=== PATIENT | male | born 1995 | race Hispanic/Latino ===

== ENCOUNTER 2021-07-10 21:09 | Emergency (ER) | payer SELFPAY ==
[2021-07-10] MEDS ORDERED: TETANUS & DIPHTHERIA TOX,ADULT 0.5 ML VIAL ONE (22:36)
--- NOTE | 2021-07-10 23:54 | EDPHYS ---
Physician Documentation [facility] Name: Kevin Colbert Age: 25 yrs Sex: Male : 1995 Arrival Date: 07/10/2021 Time: 21:12 Bed 17 Private MD: ED Physician Micheal Marie HPI: 07/10 22:26 This 25 yrs old Male presents to ER via Ambulatory with complaints of Hand pm1 Injury, Laceration To Hand. 22:26 The patient or guardian reports a laceration, clean. The complaints affect the dorsal pm1 aspect of middle phalanx of right ring finger and dorsal aspect of middle phalanx of right index finger. Context: The problem was sustained at home, resulted from cleaning up broken glass in the sink. Onset: The symptoms/episode began/occurred just prior to arrival. Modifying factors: The symptoms are alleviated by pressure to area, the symptoms are aggravated by nothing. Associated signs and symptoms: Pertinent negatives: cyanosis distally, decreased sensation distally, numbness distally, tingling distally. Severity of symptoms: in the emergency department the symptoms have improved. The patient has not experienced similar symptoms in the past. The patient has not recently seen a physician. Historical: - Allergies: 21:19 No Known Allergies; ab2 - Home Meds: 21:19 None [Active]; ab2 - PMHx: 21:19 None; ab2 - PSHx: 21:19 None; ab2 - Immunization history:: Adult Immunizations up to date, Last tetanus immunization: > 10 years ago. - Social history:: Smoking status: Patient reports the use of cigarette tobacco products, denies chronic smoking, but will smoke occasionally. ROS: 22:26 Constitutional: Negative for fever, chills, and weight loss, Cardiovascular: Negative pm1 for chest pain, palpitations, and edema, Respiratory: Negative for shortness of breath, cough, wheezing, and pleuritic chest pain. 22:26 Neuro: Negative for headache, weakness, numbness, tingling, and seizure. 22:26 MS/extremity: Positive for injury or acute deformity, laceration, of the dorsal aspect of middle phalanx of right ring finger and dorsal aspect of middle phalanx of right index finger, Negative for decreased range of motion, deformity. 22:26 Skin: Positive for laceration(s), of the dorsal aspect of middle phalanx of right index finger and dorsal aspect of middle phalanx of right ring finger. 22:26 All other systems are negative. Exam: 22:26 Constitutional: This is a well developed, well nourished patient who is awake, alert, pm1 and in no acute distress. Head/Face: Normocephalic, atraumatic. 22:26 Cardiovascular: Exam negative for acute changes, Rate: normal, Rhythm: regular, Pulses: no pulse deficits are appreciated. 22:26 Respiratory: Exam negative for acute changes, respiratory distress, shortness of breath. 22:26 Musculoskeletal/extremity: Extremities: grossly normal except: noted in the dorsal aspect of middle phalanx of right ring finger and dorsal aspect of middle phalanx of right index finger: laceration, There is no evidence of decreased ROM, deformity. 22:26 Skin: Appearance: normal except for affected area, injury, laceration(s). 22:26 Neuro: Exam negative for acute changes, Orientation: is normal, Mentation: is normal, Motor: is normal, moves all fours. Vital Signs: 21:17 BP 140 / 72; Pulse 71; Resp 74; Temp 98.9(TE); Pulse Ox 100% on R/A; Weight 99.79 kg; ab2 Height 6 ft. 0 in. (182.88 cm); Pain 0/10; 07/11 00:13 BP 125 / 67; Pulse 82; Resp 16; Pulse Ox 100% on R/A; kd3 07/10 21:17 Body Mass Index 29.84 (99.79 kg, 182.88 cm) ab2 Laceration: 07/10 23:49 Wound Repair of 1.5cm ( 0.6in ) subcutaneous laceration to dorsal aspect of PIP of pm1 right ring finger. Irregularly shaped.. Distal neuro/vascular/tendon intact. Anesthesia: Local anesthetic administered with 1 mls of 1% lidocaine. Wound prep: Extensive cleansing with betadine with hibiclenz by me, Wound irrigation with saline by md, Wound explored extensively, Copious irrigation. Skin closed with 3 4-0 Prolene using simple sutures and sterile technique. Dressed with Neosporin, 4x4's, finger splint. Patient tolerated well. MDM: 22:24 Patient medically screened. pm1 23:49 Data reviewed: vital signs. Counseling: I had a detailed discussion with the patient pm1 and/or guardian regarding: the historical points, exam findings, and any diagnostic results supporting the discharge/admit diagnosis, radiology results, the need for outpatient follow up, suture removal in 10-14 days, to return to the emergency department if symptoms worsen or persist or if there are any questions or concerns that arise at home. 07/10 22:24 Order name: Hand Right 3 View XRAY pm1 07/10 22:25 Order name: Dressing - Wound; Complete Time: 00:12 pm1 07/10 22:25 Order name: Gloves, Sterile; Complete Time: 22:29 pm1 07/10 22:25 Order name: Prolene, Sutures; Complete Time: 00:12 pm1 07/10 22:25 Order name: Setup Suture Tray; Complete Time: 22:29 pm1 07/10 23:52 Order name: Finger Splint; Complete Time: 00:12 pm1 Administered Medications: 22:37 Drug: Tetanus-Diphtheria Toxoid Adult 0.5 ml {Senior Credit Officer: [employer]. Exp: kd3 07/21/2022. Lot #: [id number]. } Route: IM; Site: right deltoid; 07/11 00:13 Follow up: Response: No adverse reaction 3 07/10 23:54 Drug: Lidocaine (1 %) 5 ml Volume: 5 ml; Route: Infiltration; kd3 07/11 00:13 Follow up: Response: No adverse reaction kd3 Disposition: 00:32 Co-signature as Attending Physician, Micheal Marie MD I agree with the assessment and kdr plan of care. Disposition Summary: 07/10/21 23:54 Discharge Ordered Location: Home pm1 Problem: new pm1 Symptoms: have improved pm1 Condition: Stable pm1 Diagnosis - Laceration without foreign body of right ring finger without damage to nail pm1 Followup: pm1 - With: Emergency Department - When: As needed - Reason: Worsening of condition Followup: pm1 - With: Private Physician - When: 2 - 3 days - Reason: Recheck today's complaints, Continuance of care, Re-evaluation by your physician Discharge Instructions: - Discharge Summary Sheet pm1 - Cast or Splint Care, Adult pm1 - Laceration Care, Adult pm1 Forms: - Medication Reconciliation Form pm1 - Thank You Letter pm1 - Antibiotic Education pm1 - Prescription Opioid Use pm1 Prescriptions: - Cephalexin 500 mg Oral Capsule - take 1 capsule by ORAL route every 8 hours for 10 days; 30 capsule; Refills: 0, pm1 Product Selection Permitted Signatures: Dispatcher [employer] EDMicheal Su MD MD kdr Ghanshyam Grimm, COLD ROLL PACKER SHEET IRON COLD ROLL PACKER SHEET IRON pm1 Juju Curtis, RN RN kd3 Rubén Adame2
--- NOTE | 2021-07-10 23:54 | ER ---
Nurse's Notes [facility] Name: Kevin Colbert Age: 25 yrs Sex: Male : 1995 Arrival Date: 07/10/2021 Time: 21:12 Bed 17 Private MD: Diagnosis: Laceration without foreign body of right ring finger without damage to nail Presentation: 07/10 21:17 Chief complaint: Patient states: "I cut my hand with glass approx 20 minutes ago.". ab2 Chief complaint:. Coronavirus screen: Vaccine status: Patient reports being unvaccinated. Client denies travel out of the [place] in the last 14 days. At this time, the client does not indicate any symptoms associated with coronavirus-19. Ebola Screen: Patient negative for fever greater than or equal to 101.5 degrees Fahrenheit, and additional compatible Ebola Virus Disease symptoms Patient denies exposure to infectious person. Patient denies travel to an Ebola-affected area in the 21 days before illness onset. No symptoms or risks identified at this time. Initial Sepsis Screen: Does the patient meet any 2 criteria? No. Patient's initial sepsis screen is negative. Does the patient have a suspected source of infection? No. Patient's initial sepsis screen is negative. Risk Assessment: Do you want to hurt yourself or someone else? Patient reports no desire to harm self or others. Onset of symptoms is unknown. 21:17 Method Of Arrival: Ambulatory ab2 21:17 Acuity: SOCRATES 4 ab2 Triage Assessment: 21:20 General: Appears in no apparent distress. comfortable, Behavior is calm, cooperative, ab2 appropriate for age. Pain: Denies pain. Musculoskeletal:. Injury Description: Laceration sustained to dorsal aspect of middle phalanx of right index finger and dorsal aspect of middle phalanx of right ring finger. Historical: - Allergies: 21:19 No Known Allergies; ab2 - Home Meds: 21:19 None [Active]; ab2 - PMHx: 21:19 None; ab2 - PSHx: 21:19 None; ab2 - Immunization history:: Adult Immunizations up to date, Last tetanus immunization: > 10 years ago. - Social history:: Smoking status: Patient reports the use of cigarette tobacco products, denies chronic smoking, but will smoke occasionally. Screenin:28 Abuse screen: Denies threats or abuse. Denies injuries from another. Nutritional kd3 screening: No deficits noted. Tuberculosis screening: No symptoms or risk factors identified. 21:28 Fall Risk Gait- Normal/Bed Rest/Wheelchair (0 pts). kd3 Assessment: 21:28 General: Appears in no apparent distress. comfortable, Behavior is calm, cooperative, kd3 appropriate for age. Neuro: Level of Consciousness is awake, alert, obeys commands. Respiratory: No deficits noted. Airway is patent Trachea midline Respiratory effort is even, unlabored. 07/11 00:12 Reassessment: Patient and/or family updated on plan of care and expected duration. Pain kd3 level reassessed. Patient is alert, oriented x 3, equal unlabored respirations, skin warm/dry/pink. Vital Signs: 07/10 21:17 BP 140 / 72; Pulse 71; Resp 74; Temp 98.9(TE); Pulse Ox 100% on R/A; Weight 99.79 kg; ab2 Height 6 ft. 0 in. (182.88 cm); Pain 0/10; 07/11 00:13 BP 125 / 67; Pulse 82; Resp 16; Pulse Ox 100% on R/A; kd3 07/10 21:17 Body Mass Index 29.84 (99.79 kg, 182.88 cm) ab2 ED Course: 07/10 21:12 Patient arrived in ED. jj6 21:19 Triage completed. ab2 21:21 Arm band placed on left wrist. ab2 21:24 Ghanshyam Grimm NP is PHCP. pm1 21:24 Micheal Marie MD is Attending Physician. pm1 21:28 Juju Curtis RN is Primary Nurse. kd3 21:28 Patient has correct armband on for positive identification. kd3 22:49 Hand Right 3 View XRAY In Process Unspecified. EDMS 07/11 00:12 Assist provider with laceration repair on right hand and dorsal aspect of middle kd3 phalanx of right ring finger and dorsal aspect of middle phalanx of right index finger. Patient did not have IV access during this emergency room visit. Administered Medications: 07/10 22:37 Drug: Tetanus-Diphtheria Toxoid Adult 0.5 ml {Cellophane Bag Machine Operator: Front Flip. Exp: kd3 07/21/2022. Lot #: [id number]. } Route: IM; Site: right deltoid; 07/11 00:13 Follow up: Response: No adverse reaction kd3 07/10 23:54 Drug: Lidocaine (1 %) 5 ml Volume: 5 ml; Route: Infiltration; kd3 07/11 00:13 Follow up: Response: No adverse reaction kd3 Outcome: 07/10 23:54 Discharge ordered by . pm1 03 00:12 Discharged to home ambulatory. kd3 Condition: stable Discharge instructions given to patient, Instructed on discharge instructions, follow up and referral plans. medication usage, Demonstrated understanding of instructions, follow-up care, medications, Prescriptions given X 1. 00:13 Patient left the ED. kd3 Signatures: Dispatcher [employer] EDMS Ghanshyam Grimm NP RECOVERY ANALYST pm1 Selina Whitley6 Juju Curtis RN RN kd3 Rubén Adame2
[2021-07-11 01:06] VITALS: TEMP 98.9; O2SAT 100
[2021-07-11 01:07] VITALS: BP 125/67
--- NOTE | 2021-07-11 08:18 | RAD REPORT ---
EXAM DESCRIPTION: RAD - Hand Right 3 View - 07/10/2021 10:49 pm CLINICAL HISTORY: laceration Pain and swelling COMPARISON: No comparisons FINDINGS: Soft tissue swelling is seen affecting the second and fourth fingers. No fracture or radio paque foreign body identified.
== END 2021-07-11 00:13 | disposition home or self-care (01) ==
LOC: ER 21:09
PROC: 0JQJ0ZZ Repair Right Hand Subcutaneous Tissue and Fascia, Open Approach (ICD-10-PCS; principal; 2021-07-11)
DX: S61.214A Laceration without foreign body of right ring finger without damage to nail, initial encounter (principal); W25.XXXA Contact with sharp glass, initial encounter; Y93.G1 Activity, food preparation and clean up; Y92.000 Kitchen of unspecified non-institutional (private) residence as the place of occurrence of the external cause; Z23 Encounter for immunization; F17.210 Nicotine dependence, cigarettes, uncomplicated
CPT/HCPCS: 90471; 90714; 99284